=== PATIENT | female | born 1955 | race Caucasian/White ===

== ENCOUNTER → 2016-10-23 | Day surgery (SDC) | payer OTHER ==
[~2016-10-23] MED LIST: CETIRIZINE HCL10 M1 PO; CORGARD20 MG PO; DEXILANT60 MG PO; DILTIAZEM 24HR240 MG PO; EFFEXOR XR150 MG PO; FLEXERIL 10 MG10 MG PO; GLUCOPHAGE1000 MG PO; JANUVIA100 MG PO; LANTUS100 UNIT/1 SQ; LEVOTHYROXINE25 MCG PO; LISINOPRIL20 MG PO; NOVOLOG FL100 UNIT/1 SQ; SIMVASTATIN20 MG PO; TOPIRAMATE100 MG PO
== END | disposition home or self-care (01) ==
LOC: OR 07:17
PROVIDERS: Internal Medicine Gastroenterology
PROC: 0DJ08ZZ Inspection of Upper Intestinal Tract, Via Natural or Artificial Opening Endoscopic (ICD-10-PCS; principal; 2016-10-23 11:05)
DX: I85.00 Esophageal varices without bleeding (principal); K74.69 Other cirrhosis of liver; K76.6 Portal hypertension; K31.89 Other diseases of stomach and duodenum; E78.5 Hyperlipidemia, unspecified; I10 Essential (primary) hypertension; E11.9 Type 2 diabetes mellitus without complications; E07.9 Disorder of thyroid, unspecified; D69.59 Other secondary thrombocytopenia; E03.9 Hypothyroidism, unspecified; K76.0 Fatty (change of) liver, not elsewhere classified; E66.3 Overweight; Z88.6 Allergy status to analgesic agent; Z88.1 Allergy status to other antibiotic agents; Z79.4 Long term (current) use of insulin; Z79.899 Other long term (current) drug therapy; Z90.710 Acquired absence of both cervix and uterus; Z90.89 Acquired absence of other organs; Z90.49 Acquired absence of other specified parts of digestive tract
CPT/HCPCS: 82962; J2250; J3010; J7030